=== PATIENT | male | born 1980 | race Caucasian/White ===

== ENCOUNTER 2018-06-10 20:18 | Inpatient (IN) | payer MEDICARE, OTHER ==
[~2018-06-10] VITALS: Ht 185.4 cm; Wt 117.0 kg
[2018-06-10] MEDS ORDERED: SODIUM CHLORIDE FLUSH 10ML SYR IVF ONE (21:00)
[2018-06-10] MEDS ORDERED: methylPREDNISolone SOD SUCC 125 MG/2 ML IVP ONE (21:00)
[2018-06-10] MEDS ORDERED: ALBUTEROL/IPRATROPIUM 2.5MG/0.5MG, 3 ML NPPB ONE (21:00)
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
[2018-06-10] MEDS ORDERED: ALBUTEROL/IPRATROPIUM 2.5MG/0.5MG, 3 ML ONE (21:11)
--- NOTE | 2018-06-10 21:23 | NUR ---
RT AT BS AND TECH AT BS FOR EKG.
[2018-06-10] MEDS ORDERED: methylPREDNISolone SOD SUCC 125 MG/2 ML ONE (21:30)
[2018-06-10 21:58] LABS: BASOPHILS # (AUTO) 0.02 x10^3/uL (0-0.1); BASOPHILS % (AUTO) 0 % (0-1); EOSINOPHILS # (AUTO) 0.13 x10^3/uL (0-0.4); EOSINOPHILS % (AUTO) 1 % (1-7); LYMPHOCYTES # (AUTO) 1.38 x10^3/uL (1-3.4); LYMPHOCYTES % (AUTO) 10 % (22-44); MD NO; MEAN CORPUSCULAR HEMOGLOBIN 30.2 pg (27.5-34.5); MEAN CORPUSCULAR HGB CONC 33.9 g/dL (33.2-36.2); MEAN CORPUSCULAR VOLUME 89.3 fL (81-97); MEAN PLATELET VOLUME 9.9 fL (7.4-10.4); MONOCYTES # (AUTO) 0.97 x10^3/uL (0.2-0.8); MONOCYTES % (AUTO) 7 % (2-9); NEUTROPHILS # (AUTO) 11.87 x10^3/uL (1.8-6.8); NEUTROPHILS % (AUTO) 83 % (42-75); PLATELET COUNT 238 x10^3/uL (130-400); RED BLOOD COUNT 4.68 x10^6/uL (4.38-5.82); RED CELL DISTRIBUTION WIDTH 12.2 % (9.4-14.8)
[2018-06-10 22:06] LABS: ALANINE AMINOTRANSFERASE 32 U/L (12-78); ANION GAP 4 mmol/L (5-15); CALCIUM 8.4 mg/dL (8.5-10.1); CHLORIDE 106 mmol/L (98-107); CREATININE 1.04 mg/dL (0.7-1.3)
[2018-06-10 22:09] LABS: ALKALINE PHOSPHATASE 74 U/L (45-117); BILIRUBIN,TOTAL 0.4 mg/dL (0.2-1.0); TOTAL PROTEIN 7.1 g/dL (6.4-8.2); TROPONIN I < 0.015 ng/mL (0.000-0.045)
--- NOTE | 2018-06-10 22:22 | NUR ---
PT. OUT OF ROOM FOR IMAGING.
[2018-06-10] MEDS ORDERED: OMNIPAQUE 350 MG/ML, 100ML BOTTLE ONE (22:26)
--- NOTE | 2018-06-10 22:57 | NUR ---
PT. RESTING ON GURNEY WITH EYES CLOSED. SONOROUS RESP NOTED. VS UPDATED. SINUS TACH ON MONITOR. 2 SETS OF BLOOD CULTURES HAD BEEN COMPLETED BY LAB ALREADY; WILL HANG IV ABX PER ORDER. CALL LIGHT IN REACH. ALL SAFETY MEASURES OSBERVED.
[2018-06-10] MEDS ORDERED: AMPICILLIN/SULBACTAM 3 GM in SODIUM CHLORIDE 0.9% 100 ML IV ONE (23:00)
--- NOTE | 2018-06-10 23:47 | NUR ---
PT. BACK FROM CT.
--- NOTE | 2018-06-11 00:24 | NUR ---
[facility] AT TO EVAL PT. FOR ADMISSION. PT. DOESN'T KNOW WHAT MEDS HE IS SUPPOSED TO BE ON AND JUST STATES "I AM SICK AND I NEED MEDICINE". PT. DENIES ANY SI/HI TO THIS RN. PT IS A VERY POOR HISTORIAN. ALL MONITORS REMAIN IN PLACE. CALL LIGHT IN REACH. ALL SAFETY MEASURES OBSERVED.
--- NOTE | 2018-06-11 00:55 | NUR ---
REPORT TO RAGHU OTERO. FLOOR READY FOR PT. TRANSPORT.
[2018-06-11] MEDS ORDERED: LORazepam 1MG TABLET PO PRN (01:00)
[2018-06-11] MEDS: CEFTRIAXONE PMX 2GM/50ML 50 ML IV SCH (01:00)
[2018-06-11] MEDS ORDERED: hydrALAzine 20 MG/ML, 1ML IVPush PRN (01:00)
--- NOTE | 2018-06-11 01:06 | NUR ---
[facility] ORDER FOR MED/TELE VS. MED/SURG SO PT. TO BE HELD IN ED NOW.
[2018-06-11] MEDS ORDERED: CEFTRIAXONE PMX 2GM/50ML 50 ML ONE (01:36)
[2018-06-11 02:00] LABS: TROPONIN I < 0.015 ng/mL (0.000-0.045)
[2018-06-11 02:06] LABS: THYROID STIMULATING HORMONE 0.506 mIU/L (0.358-3.740)
--- NOTE | 2018-06-11 02:54 | NUR ---
PT. RESTING ON GURNEY WITH EYES CLOSED. NADN. VS UPDATED. CALL LIGHT REMAINS IN REACH. ALL SAFETY MEASURES OBSERVED. HOSPITAL BED HAS BEEN REQUESTED FOR PT.
--- NOTE | 2018-06-11 04:18 | NUR ---
PT. PROVIDED WITH URINAL AND PRIVACY FOR VOIDING.
--- NOTE | 2018-06-11 04:38 | NUR ---
[facility] SCREEN COLLECTED AND SENT TO LAB; 800ML URINE OUTPUT. PT. ABLE TO STAND AND TRANSFER SELF TO CHAIR WHILE GURNEY WAS EXCHANGED FOR HOSPITAL BED. IV FOUND TO BE OUT OF PT. ARM. NEW IV TO BE PLACED. PT. PROVIDED WITH CEREAL AND MILK PER REQUEST FOR FOOD. PT. DENIES OTHER NEEDS. CALL LIGHT IN REACH. ALL SAFETY MEASURES OBSERVED.
[2018-06-11 04:56] LABS: AMPHETAMINE SCREEN, URINE Negative (Negative); BARBITURATE SCREEN, URINE Negative (Negative); BENZODIAZEPINE SCREEN, URINE Negative (Negative); CANNABINOID SCREEN, URINE Negative (Negative); COCAINE SCREEN, URINE Negative (Negative); METHADONE SCREEN, URINE Negative (Negative); OPIATE SCREEN, URINE Negative (Negative)
--- NOTE | 2018-06-11 04:58 | NUR ---
NEW IV ESTABLISHED. VS UPDATED. ALL SAFETY MEASURES OBSERVED. PT. WITH NADN. O2 DOWN TO 2L AND PT. MAINTAINING O2 SAT ABOVE 95% WITH THIS; DOWN FROM 4L EARLIER.
[2018-06-11 07:02] LABS: TROPONIN I < 0.015 ng/mL (0.000-0.045)
--- NOTE | 2018-06-11 07:19 | NUR ---
BS REPORT TO RAGHU BAY TO ASSUME PT. CARE.
--- NOTE | 2018-06-11 07:58 | NUR ---
cardiac rhythm strip printed and placed on chart
[2018-06-11] MEDS: FUROSEMIDE 20 MG/2 ML IV SCH ×2 (11:41→17:14)
[2018-06-11] MEDS: DOXYCYCLINE 100MG TABLET PO SCH ×2 (11:41→20:43)
[2018-06-11] MEDS: ENOXAPARIN 40 MG/0.4 ML SQ SCH (11:41)
[2018-06-11 11:50] VITALS: BP 130/69
[2018-06-11] MEDS ORDERED: VANCOMYCIN PER PHARMACY MC PRN (13:00)
[2018-06-11 14:00] VITALS: BP 135/75
[2018-06-11] MEDS ORDERED: PHARMACOKINETIC CONSULTATION MC ONE (15:30)
[2018-06-11] MEDS ORDERED: PHARMACOKINETIC MONITORING MC PRN (15:30)
[2018-06-11] MEDS: VANCOMYCIN 2,000 MG in SODIUM CHLORIDE 0.9% 500 ML IV SCH (15:59)
[2018-06-11 20:14] VITALS: BP 123/61
[2018-06-12] MEDS: CEFTRIAXONE PMX 2GM/50ML 50 ML IV SCH (00:21)
[2018-06-12 01:10] VITALS: BP 114/75
[2018-06-12] MEDS: VANCOMYCIN 2,000 MG in SODIUM CHLORIDE 0.9% 500 ML IV SCH ×2 (02:50→15:53)
[2018-06-12 05:32] LABS: BASOPHILS # (AUTO) 0.14 x10^3/uL (0-0.1); BASOPHILS % (AUTO) 1 % (0-1); EOSINOPHILS # (AUTO) 0.08 x10^3/uL (0-0.4); EOSINOPHILS % (AUTO) 1 % (1-7); LYMPHOCYTES % (AUTO) 20 % (22-44); MD NO; MEAN CORPUSCULAR HEMOGLOBIN 30.5 pg (27.5-34.5); MEAN CORPUSCULAR HGB CONC 34.1 g/dL (33.2-36.2); MEAN CORPUSCULAR VOLUME 89.5 fL (81-97); MEAN PLATELET VOLUME 9.4 fL (7.4-10.4); MONOCYTES # (AUTO) 0.88 x10^3/uL (0.2-0.8); MONOCYTES % (AUTO) 8 % (2-9); NEUTROPHILS # (AUTO) 8.29 x10^3/uL (1.8-6.8); NEUTROPHILS % (AUTO) 71 % (42-75); PLATELET COUNT 243 x10^3/uL (130-400); RED BLOOD COUNT 4.17 x10^6/uL (4.38-5.82); RED CELL DISTRIBUTION WIDTH 12.2 % (9.4-14.8)
[2018-06-12 05:47] LABS: ALBUMIN 2.5 g/dL (3.4-5.0); CALCIUM 8.3 mg/dL (8.5-10.1); CHLORIDE 105 mmol/L (98-107)
[2018-06-12 05:51] LABS: ALANINE AMINOTRANSFERASE 32 U/L (12-78); ALKALINE PHOSPHATASE 58 U/L (45-117); ANION GAP 5 mmol/L (5-15); BILIRUBIN,TOTAL 0.4 mg/dL (0.2-1.0); TOTAL PROTEIN 6.2 g/dL (6.4-8.2)
[2018-06-12 07:40] VITALS: BP 125/78
[2018-06-12] MEDS: ENOXAPARIN 40 MG/0.4 ML SQ SCH (09:51)
[2018-06-12] MEDS: FUROSEMIDE 20 MG/2 ML IV SCH ×2 (09:51→17:00)
[2018-06-12] MEDS: DOXYCYCLINE 100MG TABLET PO SCH ×2 (09:51→19:50)
[2018-06-12 12:06] VITALS: BP 116/68
[2018-06-12] MEDS: QUETIAPINE 25MG TABLET PO SCH (19:51)
[2018-06-12 20:16] VITALS: BP 117/69
[2018-06-13] MEDS: CEFTRIAXONE PMX 2GM/50ML 50 ML IV SCH (00:16)
[2018-06-13 01:07] VITALS: BP 97/66
[2018-06-13] MEDS: VANCOMYCIN 2,000 MG in SODIUM CHLORIDE 0.9% 500 ML IV SCH (03:00)
[2018-06-13] MEDS: FUROSEMIDE 20 MG/2 ML IV SCH ×2 (07:30→17:00)
[2018-06-13 07:43] VITALS: BP 105/73
[2018-06-13 08:49] LABS: BASOPHILS # (AUTO) 0.05 x10^3/uL (0-0.1); BASOPHILS % (AUTO) 1 % (0-1); EOSINOPHILS # (AUTO) 0.21 x10^3/uL (0-0.4); EOSINOPHILS % (AUTO) 3 % (1-7); LYMPHOCYTES # (AUTO) 1.86 x10^3/uL (1-3.4); LYMPHOCYTES % (AUTO) 26 % (22-44); MD NO; MEAN CORPUSCULAR HEMOGLOBIN 29.6 pg (27.5-34.5); MEAN CORPUSCULAR HGB CONC 33.3 g/dL (33.2-36.2); MEAN CORPUSCULAR VOLUME 88.9 fL (81-97); MEAN PLATELET VOLUME 9.3 fL (7.4-10.4); MONOCYTES # (AUTO) 0.64 x10^3/uL (0.2-0.8); MONOCYTES % (AUTO) 9 % (2-9); NEUTROPHILS # (AUTO) 4.55 x10^3/uL (1.8-6.8); NEUTROPHILS % (AUTO) 62 % (42-75); PLATELET COUNT 283 x10^3/uL (130-400); RED BLOOD COUNT 4.93 x10^6/uL (4.38-5.82)
[2018-06-13 08:50] LABS: ALBUMIN 2.8 g/dL (3.4-5.0); ANION GAP 6 mmol/L (5-15); CHLORIDE 103 mmol/L (98-107)
[2018-06-13 08:54] LABS: ALANINE AMINOTRANSFERASE 41 U/L (12-78); ALKALINE PHOSPHATASE 67 U/L (45-117); BILIRUBIN,TOTAL 0.7 mg/dL (0.2-1.0); CREATININE 0.99 mg/dL (0.7-1.3); TOTAL PROTEIN 7.4 g/dL (6.4-8.2)
[2018-06-13] MEDS: ENOXAPARIN 40 MG/0.4 ML SQ SCH (09:00)
[2018-06-13] MEDS: DOXYCYCLINE 100MG TABLET PO SCH ×2 (12:14→21:02)
[2018-06-13] MEDS: LINEZOLID 600 MG TABLET PO SCH ×2 (12:15→21:02)
[2018-06-13 19:31] VITALS: BP 121/78
[2018-06-13] MEDS: QUETIAPINE 25MG TABLET PO SCH (21:03)
[2018-06-14] MEDS: CEFTRIAXONE PMX 2GM/50ML 50 ML IV SCH (01:00)
[2018-06-14 01:35] VITALS: BP 112/82
[2018-06-14] MEDS: FUROSEMIDE 20 MG/2 ML IV SCH (07:16)
[2018-06-14 07:41] VITALS: BP 128/75
[2018-06-14] MEDS: LINEZOLID 600 MG TABLET PO SCH ×2 (08:43→20:59)
[2018-06-14] MEDS: ENOXAPARIN 40 MG/0.4 ML SQ SCH (08:43)
[2018-06-14] MEDS: DOXYCYCLINE 100MG TABLET PO SCH ×2 (08:43→20:59)
[2018-06-14 13:48] VITALS: BP 132/75
[2018-06-14 19:45] VITALS: BP 104/62
[2018-06-14] MEDS: QUETIAPINE 25MG TABLET PO SCH (20:59)
[2018-06-14] MEDS: ACETAMINOPHEN 325 MG TABLET PO PRN (21:04)
[2018-06-15 03:14] VITALS: BP 97/59
[2018-06-15 07:37] VITALS: BP 107/87
[2018-06-15] MEDS: LINEZOLID 600 MG TABLET PO SCH ×2 (08:26→21:28)
[2018-06-15] MEDS: DOXYCYCLINE 100MG TABLET PO SCH ×2 (08:26→21:28)
[2018-06-15] MEDS: ENOXAPARIN 40 MG/0.4 ML SQ SCH (08:26)
[2018-06-15 13:22] VITALS: BP 131/77
[2018-06-15 19:21] VITALS: BP 129/82
[2018-06-15] MEDS: ACETAMINOPHEN 325 MG TABLET PO PRN (21:28)
[2018-06-15] MEDS: QUETIAPINE 25MG TABLET PO SCH (21:28)
[2018-06-16 02:11] VITALS: BP 123/88
[2018-06-16 06:52] VITALS: BP 119/77
[2018-06-16] MEDS: LINEZOLID 600 MG TABLET PO SCH (08:23)
[2018-06-16] MEDS: DOXYCYCLINE 100MG TABLET PO SCH (08:23)
[2018-06-16] MEDS: ENOXAPARIN 40 MG/0.4 ML SQ SCH (08:24)
[2018-06-16 13:52] VITALS: BP 134/99
[2018-06-16] MEDS ORDERED: DOXYCYCLINE 100MG TABLET PO SCH (14:30)
[2018-06-16] MEDS ORDERED: AMOXICILLIN/CLAV 875-125MG TABLET PO SCH (14:30)
[2018-06-16] MEDS ORDERED: AMOX1TAB12 PO (15:28)
[2018-06-16] MEDS ORDERED: DOXY100T PO (15:28)
[2018-06-16] MEDS ORDERED: QUET25TA7 PO (15:28)
== END 2018-06-16 17:11 | DRG 871 ==
LOC: ED 23:19 → EDIP 06-11 00:32 → 3NE 06-11 14:32
PROVIDERS: ADMIT Family Medicine; ATTEND Family Medicine
DX: A41.9 Sepsis, unspecified organism (principal); J96.01 Acute respiratory failure with hypoxia; L03.116 Cellulitis of left lower limb; R45.851 Suicidal ideations; J98.11 Atelectasis; L03.115 Cellulitis of right lower limb; F17.200 Nicotine dependence, unspecified, uncomplicated; F20.9 Schizophrenia, unspecified; I50.9 Heart failure, unspecified; Z79.01 Long term (current) use of anticoagulants; Z23 Encounter for immunization
CPT/HCPCS: 36415; 70450; 71045; 71275; 80053; 80307; 83605; 83735; 83880; 84100; 84443; 84484; 85025; 87040; 90656; 93005; 93306; 93922; 93970; 96365; 96375; G0378; J0295; J0696; J1650; J3370; J7620; Q9967; J1940; J2930; J7040

== ENCOUNTER 2018-10-12 10:57 | Emergency (ER) | payer MEDICARE, MEDICAID ==
[~2018-10-12] VITALS: Ht 188 cm; Wt 102.5 kg
[~2018-10-12 10:57] MED LIST: AMOX1TAB12 PO; DOXY100T PO; QUET25TA7 PO
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
[2018-10-12] MEDS ORDERED: QUET400T4 PO (12:11)
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
[2018-10-12] MEDS ORDERED: ACETAMINOPHEN 500 MG TABLET ONE (12:19)
[2018-10-12 12:27] VITALS: BP 127/89
[2018-10-12] MEDS ORDERED: ACETAMINOPHEN 500 MG TABLET PO ONE (12:30)
== END 2018-10-12 12:40 | disposition home or self-care (01) ==
LOC: ED 12:20
DX: F29 Unspecified psychosis not due to a substance or known physiological condition (principal); Z11.3 Encounter for screening for infections with a predominantly sexual mode of transmission; F17.200 Nicotine dependence, unspecified, uncomplicated; F20.9 Schizophrenia, unspecified
CPT/HCPCS: 99282